=== PATIENT | male | born 1975 | race Caucasian/White ===

== ENCOUNTER 2023-10-10 14:17 | Outpatient (CLI) | payer OTHER, SELFPAY | END 2023-10-10 14:18 | disposition home or self-care (01) | PROVIDERS: PCP Family Medicine; Visit Provider Family Medicine | DX: Z80.42 Family history of malignant neoplasm of prostate (principal); Z83.3 Family history of diabetes mellitus; Z13.220 Encounter for screening for lipoid disorders; Z12.5 Encounter for screening for malignant neoplasm of prostate; Z13.1 Encounter for screening for diabetes mellitus | CPT/HCPCS: 80048; 80061; G0103 ==

== ENCOUNTER 2024-12-19 13:48 | Outpatient (CLI) | payer BC, SELFPAY ==
[2024-12-19 14:50] VITALS: BP 174/84; PULSE 89; RESP 18
[2024-12-19] MEDS: PERFLUTREN LIPID MICROSPHERES 2 ML VIAL IVP (14:52)
--- OUTSIDE RECORDS SUMMARY | 2024-12-19 14:59 | XMS_ITS | Clinical Summary ---
Author Organization [employer] [facility] Address [address] [place] [id number] Care Team Providers Care Booking Manager Name Role Phone Pcp, No Primary Care Provider Unavailabl e Allergies No known active allergies Medications neomycin-polymyx in-hydrocortison e (CORTISPORIN OTIC) otic suspension Place 3 Drops into right ear 4 times daily. 1 Bottle 0 06/29/2010 Active Encounters Date Type Department Care Team Description 12/19/2024 2:00 PM CDT Ancillary Procedure [facility] & [address] [address] Arrived from Last 3 Months Social History Tobacco Use Types Packs/Day Years Used Date Smoking Tobacco: Never Smokeless Tobacco: Never Alcohol Use Standard Drinks/Week Comments Not Asked 0 (1 standard drink = 0.6 oz pur e alcohol) Sex and Gender Information Value Date Recorded Sex Assigned at Not on file Legal Sex Male 8:02 AM [employer] Gender Identity Not on file Sexual Orientation Not on file Obstetrics History Last Filed Vital Signs Vital Sign Reading Time Taken Comments Blood Pressure - - Pulse - - Temperature 36.9 C (98.4 F) 06/29/2010 7:36 PM [employer] Respiratory Rate - - Oxygen Saturation - - Inhaled Oxygen Concentration - - Weight 107.4 kg (236 lb 12.8 oz) 06/29/2010 7:36 PM [employer] Height - - Body Mass Index - - Plan of Treatment Health Maintenance Due Date Last Done Comments Tdap 1986 Depression screening for age 12+ 1987 HIV for age 15-65 1990 BMI (ht and wt on same day) for age 18+ 1993 Hepatitis C screening for ag e 18-79 1993 Hepatitis B series for 19+ ( 1 of 3 - 19+ 3-dose series) 1994 Tetanus booster 1995 Colonoscopy through age 75 2020 Lipids for age 45-75 2020 COVID-19 vaccine series (2023- season) 2024 Influenza Vaccine (Season Ended) 2025 Pneumococcal series for age 6-49 Aged Out No longer eligible based on patient's age to complete this topic Care Teams Booking Manager Relationship Specialty Start Date End Date Pcp, No . PCP - General 06/29/10
--- NOTE | 2024-12-19 15:07 | P.STN_ITS ---
Stress Test Note Date Date Seen: 12/19/24 Date of test: 12/19/24 Providers Primary care provider: Not a Local Provider Stress test physician: Kortney Carr Stress Test Note Stress test ordered: Stress Echo Indication for test: Chest pain Stress test medicine: Definity Results discussion: Resting EKG: Sinus rhythm, 61 beats per minute. Some artifact. Flipped T- waves lead V1 without any ST segment change Resting blood pressure: 128/92 Stress test: Patient was consented on ordered stress test of standard Cesar protocol exercise treadmill stress echo. Patient was able to exercise to 7 minutes 57 seconds, stopping due to reaching target heart rate and reaching exercise capacity/some shortness of breath but not out of proportion to exercise. This was equivalent to 9.5 minutes. He achieved a maximum heart rate of 153 beats per minute which was 105% of a calculated target heart rate of 145. Patient did require definity. Rate pressure product is 20,976. Patient had no chest pain, no concerning symptoms. There was no arrhythmia, no diagnostic EKG changes indicative of ischemia. Impression: Subjectively negative, objectively negative EKG portion of this stress test. Follow up suggested: Patient is discharged home in stable condition. He is aware that echo images are pending to couple this for a full formal diagnostic; he will await to hear the formal stress test report from his primary care provider once the echo images have been read.
== END 2024-12-19 14:57 | disposition home or self-care (01) ==
LOC: STRESS 13:50
PROVIDERS: Visit Provider Emergency Medicine
DX: R07.9 Chest pain, unspecified (principal); I35.1 Nonrheumatic aortic (valve) insufficiency
CPT/HCPCS: 93016; 93325; 93351; Q9957

== ENCOUNTER 2024-12-24 08:17 | Outpatient (CLI) | payer BC, SELFPAY | END 2024-12-24 08:18 | disposition home or self-care (01) | LOC: LKVREF 14:54 | PROVIDERS: Visit Provider Emergency Medicine | DX: E78.5 Hyperlipidemia, unspecified (principal); R07.9 Chest pain, unspecified; R73.01 Impaired fasting glucose; Z80.42 Family history of malignant neoplasm of prostate; Z12.5 Encounter for screening for malignant neoplasm of prostate | CPT/HCPCS: 80048; 80061; G0103 ==